=== PATIENT | female | born 1950 | race Caucasian/White ===

== ENCOUNTER 2020-02-09 12:22 | Emergency (ER) | payer MEDICARE, OTHER ==
--- NOTE | 2020-02-09 14:08 | EDM.PDOC ---
ED HPI GENERAL MEDICAL PROBLEM - General Chief Complaint: Cardiovascular Problem Stated Complaint: LEG SWELLING Time Seen by Provider: 02/09/20 13:50 Source of Information: Reports: Patient History Limitations: Reports: No Limitations - History of Present Illness INITIAL COMMENTS - FREE TEXT/NARRATIVE: pt states onset of ankle swelling for some months but about three weeks ago it started to get worse with swelling beginning to reach her knees over the last 2- 3 days. pt states increasing SOB over the last 2-3 days without cough. pt denies fever, chills, nausea, vomiting, chest pain, dizziness. pt admits to about 80 pack year smoking history and diagnosis of COPD, pt states no other known medical history and no PCP. - Related Data Allergies Allergy/AdvReac Type Severity Reaction Status Date / Time Penicillins Allergy Severe Anaphylactic Verified 02/09/20 15:06 Shock Past Medical History Respiratory History: Reports: COPD ED ROS GENERAL - Review of Systems Review Of Systems: Comprehensive ROS is negative, except as noted in HPI. ED EXAM, GENERAL - Physical Exam Exam: See Below Exam Limited By: No Limitations General Appearance: Alert, WD/WN Eye Exam: Bilateral Eye: EOMI, PERRL Nose: Normal Inspection, Normal Mucosa Throat/Mouth: Normal Inspection, Normal Lips, Normal Gums, Normal Oropharynx Neck: Non-Tender, Full Range of Motion Respiratory/Chest: Crackles (bases and mid lungs bilat), Wheezing (expiratory to upper lobes bilateral.) Cardiovascular: Normal Peripheral Pulses, Regular Rate, Rhythm, No Murmur, No Rub, Other (bilateral lower extremity pitting edema from knees to feet +2-3) Peripheral Pulses: 2+: Radial (L), Radial (R), Dorsalis Pedis (L), Dorsalis Pedis (R) Extremities: Normal Range of Motion, Non-Tender Neurological: Alert, Oriented, CN II-XII Intact, Normal Cognition, Normal Gait Psychiatric: Normal Affect, Normal Mood Skin Exam: Dry, Intact, Cool, Cyanosis (toes, fingertips bilateral) EKG INTERPRETATION EKG Date: 02/09/20 Time: 13:56 Rhythm: Other (sinus tach) [place]: LAD-Left [place] Deviation P-Wave: Present QRS: Wide ST-T: Other (none noted) QT: Normal Comparison: NA - No Prior EKG Course - Orders/Labs/Meds Orders: Active Orders 24 hr Category Date Time Status EKG Documentation Completion [RC] ASDIRECTED Care 02/09/20 13:57 Ordered Chest 1V Frontal [CR] Stat Exams 02/09/20 13:54 Ordered B-TYPE NATRIURETIC PEPTIDE,BNP [CHEM] Stat Lab 02/09/20 13:54 Ordered CBC WITH AUTO DIFF [HEME] Stat Lab 02/09/20 13:54 Ordered COMPREHENSIVE METABOLIC PN,CMP [CHEM] Stat Lab 02/09/20 13:54 Ordered TROPONIN I [CHEM] Stat Lab 02/09/20 13:54 Ordered EKG 12 Lead [EK] Routine Ther 02/09/20 13:56 Ordered Departure - Departure Time of Disposition: 15:15 Disposition: DC/Tfer to Acute Hospital 02 Condition: Fair Clinical Impression: New onset of congestive heart failure, Elevated INR - Discharge Information *PRESCRIPTION DRUG MONITORING PROGRAM REVIEWED*: Not Applicable *COPY OF PRESCRIPTION DRUG MONITORING REPORT IN PATIENT RUDDY: Not Applicable Referrals: PCP,None [Primary Care Provider] - Forms: ED Department Discharge - Problem List & Annotations (1) New onset of congestive heart failure SNOMED Code(s): 50285461 Code(s): I50.9 - HEART FAILURE, UNSPECIFIED Status: Acute Current Visit: Yes (2) Elevated INR SNOMED Code(s): 488157402 Code(s): R79.1 - ABNORMAL COAGULATION PROFILE Status: Acute Current Visit: Yes - Problem List Review Problem List Initiated/Reviewed/Updated: Yes - My Orders Last 24 Hours: My Active Orders 02/09/20 13:54 Chest 1V Frontal [CR] Stat B-TYPE NATRIURETIC PEPTIDE,BNP [CHEM] Stat CBC WITH AUTO DIFF [HEME] Stat COMPREHENSIVE METABOLIC PN,CMP [CHEM] Stat TROPONIN I [CHEM] Stat 02/09/20 13:56 EKG 12 Lead [EK] Routine 02/09/20 13:57 EKG Documentation Completion [RC] ASDIRECTED - Assessment/Plan Last 24 Hours: My Active Orders 02/09/20 13:54 Chest 1V Frontal [CR] Stat B-TYPE NATRIURETIC PEPTIDE,BNP [CHEM] Stat CBC WITH AUTO DIFF [HEME] Stat COMPREHENSIVE METABOLIC PN,CMP [CHEM] Stat TROPONIN I [CHEM] Stat 02/09/20 13:56 EKG 12 Lead [EK] Routine 02/09/20 13:57 EKG Documentation Completion [RC] ASDIRECTED Assessment:: assessment: new onset CHF elevated INR plan: mauro and lasix in the ER. plan to admit to [facility] accepting physician Dr. Rodriguez at 1515 for continued monitoring and care.
[2020-02-09] MEDS ORDERED: Furosemide 40 MG/4 ML VIAL ONE (15:34)
[2020-02-09] MEDS: Furosemide 40 MG/4 ML VIAL IVPUSH ONE (15:40)
--- NOTE | 2020-02-11 13:48 | CR ---
DATE OF SERVICE: 02/09/2020 CLINICAL DATA: SOB AP CHEST: No priors. The heart is enlarged. The pulmonary vasculature is prominent with cephalization of flow consistent with pulmonary venous congestion. There is mild interstitial edema throughout both lungs. Congestive failure is suspected. There is increased density in the right lung base consistent with basilar atelectasis or infiltrate. Pneumonia should be considered. There is blunting of the left costophrenic angles consistent with bilateral pleural effusions or pleural scar. There is a nodular density in the right apex. This may be confluence of densities. I cannot exclude a pulmonary parenchymal nodule. Chest CT is recommended. No other significant findings. [id number] [facility]
== END 2020-02-09 16:30 ==
LOC: LB.ED 12:22
DX: I50.9 Heart failure, unspecified (principal); R79.1 Abnormal coagulation profile; J44.9 Chronic obstructive pulmonary disease, unspecified; Z88.0 Allergy status to penicillin
CPT/HCPCS: 36415; 51702; 71045; 80053; 83880; 84484; 85025; 85610; 85730; 93005; 96374; 99285; 99285-25; A0425; A0429; J1940